=== PATIENT | female | born 1955 | race Caucasian/White ===

== ENCOUNTER 2017-07-07 07:54 | Day surgery (SDC) | payer OTHER ==
--- NOTE | 2017-07-06 18:08 | GHP ---
[f rep st] PREOP HISTORY AND PHYSICAL DATE OF ADMISSION: 07/07/2017 DATE OF SURGERY: 07/07/2017 PREOPERATIVE DIAGNOSIS: Meniscal tear, left knee, medial side. PLANNED PROCEDURE: Meniscal repair versus partial meniscectomy, arthroscopic. HISTORY OF PRESENT ILLNESS: Korina is a 62-year-old female who injured her knee running several week s ago. She heard a pop. She has had difficulty bearing weight. MRI was obtained which showed a med ial meniscal tear and a small subchondral fracture. Decision has been made to proceed with a menisca l repair versus meniscectomy. PRIOR MEDICAL HISTORY: Hypertension. PRIOR SURGICAL HISTORY: Meniscal repair on the right knee. MEDICATIONS: Lisinopril. ALLERGIES: No known drug allergies. SOCIAL HISTORY: She is . Lives here in town. 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 D oes not smoke, but reports occasional alcohol use. REVIEW OF SYSTEMS: No shortness of breath or chest pain. Otherwise, review of systems is unremarkab le. PHYSICAL EXAMINATION: GENERAL: Healthy-appearing 62-year-old female. She is 5 feet 5 inches tall, weighs 130 pounds. VITAL SIGNS: Blood pressure is 130/80, respiratory rate is 16 on room air. Hear t rate is 70. Alert and oriented x3. NECK: Supple. There is no lymphadenopathy. No JVD. CHEST: Clear to auscultation. CARDIOVASCULAR: Regular rate and rhythm. ABDOMEN: Soft, nontender, nondis tended. There is no hepatosplenomegaly. EXTREMITIES: Left knee: She has tenderness directly on th e medial joint line. She lacks about 5 degrees of full extension. Flexes to 120 degrees. Positive Michaela sign on the medial joint line. Knee is stable to varus and valgus stress testing. 1+ Lachm an with firm endpoint. Negative posterior drawer. Calf is soft. 2+ dorsalis pedis, posterior tibia l pulses. IMAGING: MRI from [facility] is reviewed. She has a tear in the medial meniscus jered r the posterior horn and root. There is a small tear in the lateral side with some mild chondral thi nning in the patellofemoral compartment. ASSESSMENT: Medial meniscal tear, left knee. PLAN: Korina is an avid runner, active individual. I recommend trying to repair versus partial meni scectomy to her left knee. Risks and benefits including continued pain, possible need for further banerjee rgery, nonweightbearing status for 6 weeks postop was discussed. She understands this. She will nee d to take some time off work. Preoperative paperwork was completed. We will plan on surgery Monday at the hospital. /[id number]/MODL
[2017-07-07] MEDS ORDERED: ceFAZolin 2 GM/SWFI 2 GM/20 ML SYR IVP ONE (08:06)
[2017-07-07] MEDS ORDERED: LR 1,000 ML IV ONE (08:07)
[2017-07-07] MEDS ORDERED: ceFAZolin 2 GM/DEXTROSE 100 ML IV ONE (08:15)
[2017-07-07] MEDS ORDERED: CLINDAMYCIN 900 MG/DEXTROSE 50 ML IV ONE (08:30)
--- NOTE | 2017-07-07 08:46 | PDHPUP ---
History & Physical Update H&P update statement: This history and physical update is based on an assessment of the patient which was completed after admission or registration (within 24 hours), but prior to the surgery/procedure. H&P update: H&P reviewed & patient examined, no change in patient's condition since H&P completed
--- NOTE | 2017-07-07 08:51 | PDANEPAE ---
ANE Past Medical History - Cardiovascular History Hx Hypertension: Yes Hx Arrhythmias: No Hx Chest Pain: No Hx Coronary Artery / Peripheral Vascular Disease: No Hx CHF / Valvular Disease: No Hx Palpitations: No - Pulmonary History Hx COPD: No Hx Asthma/Reactive Airway Disease: No Hx Recent Upper Respiratory Infection: No Hx Oxygen in Use at Home: No Hx Sleep Apnea: No Sleep Apnea Screening Result - Last Documented: Negative - Neurologic History Hx Cerebrovascular Accident: No Hx Seizures: No Hx Dementia: No - Endocrine History Hx Diabetes: No - Renal History Hx Renal Disorders: No - Liver History Hx Hepatic Disorders: No - Neurological & Psychiatric Hx Hx Neurological and Psychiatric Disorders: No - Cancer History Hx Cancer: No - Congenital Disorder History Hx Congenital Disorders: No - GI History Hx Gastrointestinal Disorders: No - Other Health History Other Health History: NONE - Chronic Pain History Chronic Pain: No - Surgical History Prior Surgeries: NONE ANE Review of Systems Review of Systems: - Exercise capacity METS (RN): 6 METS ANE Patient History - Allergies Allergies/Adverse Reactions: Penicillins Allergy (Verified 07/06/17 18:33) Rash - Home Medications Home Medications: Ascorbic Acid 07/06/17 [Last Taken 07/06/17] Calcium 07/06/17 [Last Taken 07/06/17] Cholecalciferol (Vitamin D3) 07/06/17 [Last Taken 07/06/17] Iron 07/06/17 [Last Taken 07/06/17] Lisinopril 07/06/17 [Last Taken 07/06/17] Magnesium 07/06/17 [Last Taken 07/06/17] - NPO status NPO Since - Liquids (Date): 07/06/17 NPO Since - Liquids (Time): 23:55 NPO Since - Solids (Date): 07/06/17 NPO Since - Solids (Time): 21:00 - Anes Hx Anes Hx: no prior problems - Smoking Hx Smoking Status: Never smoked - Family Anes Hx Family Hx Anesthesia Complications: NONE ANE Labs/Vital Signs - Vital Signs Blood Pressure: 154/91 Heart Rate: 74 Respiratory Rate: 16 O2 Sat (%): 96 Height: 165.1 cm Weight: 58.967 kg ANE Physical Exam - Airway Mallampati Score: Class 1 Mouth exam: normal dental/mouth exam - Pulmonary Pulmonary: no respiratory distress, no rales or rhonchi, clear to auscultation - Cardiovascular Cardiovascular: regular rate and rhythym, no murmur, rub, or gallop - ASA Status ASA Status: II ANE Anesthesia Plan Anesthesia Plan: GA w LMA
[2017-07-07] MEDS ORDERED: THROMBIN (BOVINE) 5,000 UNIT VIAL TP ONE (08:53)
[2017-07-07] MEDS ORDERED: LIDOCAINE 1% 300 MG/30 ML SDV ONE (08:53)
[2017-07-07] MEDS ORDERED: BUPIVACAINE 0.5% 30 ML SDV ONE ×2 (08:53→08:55)
[2017-07-07] MEDS ORDERED: CALCIUM CHLORIDE 1 GM/10 ML INJ ONE (08:53)
[2017-07-07] MEDS ORDERED: EPINEPHrine 1 MG/ML INJ ONE ×2 (08:54)
[2017-07-07] MEDS ORDERED: fentaNYL 100 MCG/2 ML INJ ONE ×3 (08:55→10:58)
[2017-07-07] MEDS ORDERED: PROPOFOL 200 MG/20 ML VIAL ONE (08:56)
[2017-07-07] MEDS ORDERED: LIDO/EPI 1% **for epidural** 30 ML SDV ONE (08:58)
[2017-07-07] MEDS ORDERED: BUPIVACAINE/EPI 0.5% 30 ML SDV ONE (09:01)
[2017-07-07] MEDS ORDERED: ONDANSETRON 4 MG/2 ML VIAL ONE (09:50)
[2017-07-07] MEDS ORDERED: KETOROLAC 30 MG/1 ML SDV ONE (09:50)
[2017-07-07] MEDS ORDERED: LIDOCAINE 2% 5 ML SDV ONE (09:50)
[2017-07-07] MEDS ORDERED: DEXAMETHASONE 4 MG/ML VIAL ONE ×2 (09:50)
--- NOTE | 2017-07-07 10:03 | POSTOPPROG ---
Post Op Note Date of Operation: 07/07/17 Surgeon: Ariel Joy Services Tech: rick garcia Anesthesia: GET(General Endotracheal) Pre-op Diagnosis: Medial meniscal tear Post-op Diagnosis: same Procedure: medial meniscal repair, PF chondroplasty Findings: post horn medial meniscal tear Inf/Abcess present in the surg proc area at time of surgery?: No EBL: Minimal Complications: none
[2017-07-07] MEDS: fentaNYL 100 MCG/2 ML INJ IVP PRN ×4 (10:05→11:12)
--- NOTE | 2017-07-07 10:07 | POSTANESTH ---
Post Anesthetic Evaluation Cardiovascular Status: Similar to Pre-Op Cond Respiratory Status: Normal, Stable, Similar to Pre-op Cond. Level of Consciousness/Mental Status: Can Participate in Eval, Alert and Oriented Pain Control: Inadeq, Add Tx Required Nausea/Vomiting Control: Adequate, Prn Tx Ordered Complications Possibly Related to Anesthesia: None Noted
[2017-07-07] MEDS ORDERED: PROMETHAZINE HCL 25 MG/ML INJ IVP PRN (10:25)
[2017-07-07] MEDS ORDERED: LABETALOL HCL 5 MG/ML 20 ML MDV IVP PRN (10:25)
[2017-07-07] MEDS ORDERED: MEPERIDINE 25 MG/0.5 ML AMP IVP PRN (10:25)
[2017-07-07] MEDS ORDERED: DIAZEPAM 5 MG/ML 1 ML SYR IVP PRN (10:25)
[2017-07-07] MEDS ORDERED: HYDROCODONE/APAP 5/325 TAB PO PRN (10:25)
[2017-07-07] MEDS ORDERED: NALOXONE HCL 0.4 MG/ML INJ IVP PRN (10:25)
[2017-07-07] MEDS ORDERED: ACETAMINOPHEN 500 MG TAB PO PRN (10:25)
[2017-07-07] MEDS ORDERED: ONDANSETRON 4 MG/2 ML VIAL IVP PRN (10:25)
[2017-07-07] MEDS ORDERED: LR 500 ML IV PRN (10:25)
[2017-07-07] MEDS ORDERED: ENALAPRILAT DIHYDRATE 1.25 MG/ML VIAL IVP PRN (10:25)
[2017-07-07] MEDS ORDERED: oxyCODONE IR 5 MG TAB ONE (10:36)
[2017-07-07] MEDS: oxyCODONE IR 5 MG TAB PO PRN ×2 (10:36→11:26)
--- NOTE | 2017-07-07 10:46 | GOP ---
[f rep st] OPERATIVE REPORT DATE OF OPERATION: 07/07/2017 SURGEON: Ariel Joy MD SOLUTION DESIGN AND ANALYSIS MANAGER: Vance Marie. ANESTHESIOLOGIST: Dr. Schreiber/General. PREOPERATIVE DIAGNOSIS: Medial meniscal tear left knee. POSTOPERATIVE DIAGNOSIS: Medial meniscal tear left knee. PROCEDURE PERFORMED: 1. Arthroscopic partial medial meniscal repair. 2. Patellofemoral chondroplasty. FINDINGS: INDICATIONS: The patient is a 62-year-old female, who injured her knee running. MRI was obtained wh ich showed a posterior horn medial meniscal tear and some patellofemoral chondral thinning. Decision was made to proceed with a possible meniscal repair versus meniscectomy and a patellofemoral chondro plasty. DESCRIPTION OF PROCEDURE: After appropriate informed consent was obtained patient taken to the opera ting room, placed supine on the operating table. Time-out was performed. Patient was identified, co rrect site was identified. She received 900 mg clindamycin due to her penicillin allergy. The right leg was placed in a well-padded Well leg savage. Left leg was prepped and draped in usual sterile f ashion. All bony prominences were well padded. I instilled 5 mL 1% lidocaine with epinephrine into both anteromedial and anterolateral portals. I made a small jack incision and introduced the camera through a standard lateral portal. Patellofemoral compartment was inspected. There was some grade 2 and 3 changes of the central pole of the patella. Medial and lateral gutters were free of debris. There was some grade 1 changes in the trochlear groove. I repositioned the camera and obtained a sta ndard medial portal under direct visualization. Medial meniscus was probed. There was an undersurfa ce tear involving the posterior body running out to the horn of the meniscus. Articular cartilage on the tibia and the femur was in good shape. I looked between the notch, ACL and PCL were stable inta ct. Lateral meniscus was without injuries as was the articular cartilage. I then re-positioned the camera into the medial compartment and a was introduced to protect the articular cartilage . The meniscal repair device was then passed and a horizontal mattress suture was passed through the repair and cinched down, suture end was cut. This provided adequate stability to the repair. I the n repositioned the camera in the patellofemoral compartment. A gentle patellofemoral chondroplasty w as performed. I then repositioned the camera again in the medial compartment and then instilled 10 m L of PRP plasma at the repair site. Instruments were then withdrawn. Portal incisions were closed w ith 3-0 nylon. I instilled 30 mL of 0.5% Marcaine with epinephrine. A sterile dressing, ice cuff an d a postoperative hinged knee brace from 0-60 degrees was applied. Patient was awakened from anesthe barney, taken to the recovery room in satisfactory condition. There were no immediate intraoperative co mplications. Vance Marie's assistance was required throughout the entire case to help assist to hol d the knee in position for the meniscal repair. COMPLICATIONS: None. DRAINS: None. /[id number]/MODL
[2017-07-07 12:07] VITALS: BP 152/88
== END 2017-07-07 12:30 | disposition home or self-care (01) ==
LOC: FSGY 07:54
PROVIDERS: ATTEND Orthopaedic Surgery
PROC: 0SBD4ZZ Excision of Left Knee Joint, Percutaneous Endoscopic Approach (ICD-10-PCS; principal; 2017-07-07 09:00)
PROC: 0SQD4ZZ Repair Left Knee Joint, Percutaneous Endoscopic Approach (ICD-10-PCS; principal; 2017-07-07 09:00)
DX: S83.242A Other tear of medial meniscus, current injury, left knee, initial encounter (principal)
CPT/HCPCS: C1713; J0171; J1100; J1885; J2405; J2704; J3010; L1832